=== PATIENT | male | born 1960 | race Caucasian/White ===

== ENCOUNTER 2016-12-10 10:20 | Observation (INO) | payer BC, OTHER ==
[~2016-12-10] VITALS: Ht 165.1 cm; Wt 80.0 kg
[~2016-12-10 10:20] MED LIST: OSEL75 PO
[2016-12-10 10:28] VITALS: BP 161/74; PULSE 92; RESP 36; TEMP 97; O2SAT 100
[2016-12-10] MEDS ORDERED: DULA0.5I SQ (10:34)
[2016-12-10] MEDS ORDERED: METO100T PO (10:34)
[2016-12-10] MEDS ORDERED: PRAV10TA PO (10:34)
[2016-12-10] MEDS ORDERED: LISI10TA3 PO (10:34)
[2016-12-10 10:42] VITALS: RESP 18; O2SAT 100
[2016-12-10 10:43] VITALS: BP 161/74; PULSE 77; RESP 26; O2SAT 100
[2016-12-10] MEDS ORDERED: ONDANSETRON HCL 4 MG/2 ML VIAL IVP ONE (10:45)
[2016-12-10] MEDS ORDERED: SODIUM CHLORIDE 0.9% FLUSH 5 ML FLUSH IVF PRN (10:45)
[2016-12-10] MEDS ORDERED: LORazepam 2 MG/ML VIAL IV ONE (10:45)
[2016-12-10] MEDS ORDERED: SODIUM CHLOR 0.9% 1000 ML INJ 1,000 ML IV ONE ×2 (10:45→12:30)
--- NOTE | 2016-12-10 10:58 | RADRPT ---
EXAM DATE/TIME: 12/10/2016 10:51 [facility] COMPARISON: CHEST PA & LAT, September 25, 2014, 19:13. INDICATIONS : Shortness of breath, cough, and chest pain. MEDICAL HISTORY : None. SURGICAL HISTORY : None. ENCOUNTER: Initial ACUITY: 3 days PAIN SCORE: 3/10 LOCATION: Bilateral chest FINDINGS: A single view of the chest demonstrates the lungs to be symmetrically aerated without evidence of mas s, infiltrate or effusion. The cardiomediastinal contours are unremarkable. Osseous structures are intact. CONCLUSION: No acute disease. No significant change has occurred. Cedric Vann MD on December 10, 2016 at 10:56 Board Certified Radiologist. This report was verified electronically.
[2016-12-10 11:00] LABS: AUTOMATED NEUTROPHIL # 2.2 TH/MM3 (1.8-7.7); BASOPHIL % 0.4 % (0.0-2.0); EOSINOPHIL % 0.5 % (0.0-4.0); HEMATOCRIT 48.1 % (39.0-51.0); HEMO FLAGS DIFF FINAL; LYMPH % 51.8 % (9.0-44.0); LYMPHOCYTE # 2.9 TH/MM3 (1.0-4.8); MONO % 8.7 % (0.0-8.0); NEUT % 38.6 % (16.0-70.0); PLATELET COUNT 156 TH/MM3 (150-450); RED BLOOD COUNT 5.59 MIL/MM3 (4.50-5.90); RED CELL DISTRIBUTION WIDTH 13.2 % (11.6-17.2); WHITE BLOOD COUNT 5.6 TH/MM3 (4.0-11.0)
[2016-12-10 11:07] LABS: APTT (PATIENT) 22.6 SEC (24.3-30.1); PROTHROMBIN TIME - PATIENT 10.8 SEC (9.8-11.6)
[2016-12-10 11:13] LABS: ALT (GPT) 159 U/L (12-78); ANION GAP 14 MEQ/L (5-15); AST (GOT) 50 U/L (15-37); BICARBONATE 22.7 MEQ/L (21.0-32.0); BLOOD UREA NITROGEN 24 MG/DL (7-18); CHLORIDE 105 MEQ/L (98-107); GLOMERULAR FILTRATION RATE 60 ML/MIN (>89); POTASSIUM 3.4 MEQ/L (3.5-5.1); SODIUM (NA) 142 MEQ/L (136-145)
[2016-12-10 11:16] LABS: ALKALINE PHOSPHATASE 65 U/L (45-117); TOTAL BILIRUBIN ADULT 1.9 MG/DL (0.2-1.0)
--- NOTE | 2016-12-10 11:33 | PD ---
HPI Chief Complaint: GI Complaint Time Seen by Provider: 10:38 Travel History International Travel<30 days: No Contact w/Intl Traveler<30days: No Traveled to known affect area: No History of Present Illness HPI 56-year-old male presents emergency department for evaluation of just not feeling well. Patient apparently went to bed last night was feeling fine. This morning he was feeling somewhat nauseous he went to work and had to lay down on the ground because he had some intermittent abdominal cramping as well. He did have chocolate milk and chocolate donut today was unable tolerate that and threw up. Throughout the emergency department he is quite anxious and has thrown up twice since being him into the emergency department. States this is never happened to him before, denies any abdominal surgeries. He does have a history of diabetes, hypercholesterolemia. He denies any chest pain shortness of breath diarrhea constipation sick contacts extremity pain rash headache. PFSH Past Medical History Cancer: Yes (SKIN) High Cholesterol: Yes Diabetes: Yes Patient Takes Glucophage: No Hypertension: Yes Past Surgical History Tonsillectomy: Yes Other Surgery: Yes (SKIN CA REMOVAL) Social History Alcohol Use: No Tobacco Use: No Substance Use: No Allergies-Medications (Allergen,Severity, Reaction): Coded Allergies: No Known Allergies (Unverified , 09/25/14) Reported Meds & Prescriptions Reported Meds & Active Scripts Active Reported Pravastatin 10 Mg Tab Unknown Dose PO DAILY Lisinopril 10 Mg Tab 10 Mg PO DAILY Metoprolol Tartrate 100 Mg Tab 100 Mg PO BID Trulicity Inj (Dulaglutide Inj) 1.5 Mg/0.5 Ml Pen 1.5 Mg SQ Q7D Review of Systems Except as stated in HPI: all other systems reviewed are Neg Physical Exam Narrative GENERAL: Well-developed, appears quite uncomfortable. Nontoxic appearance. SKIN: Warm and dry. HEAD: Atraumatic. Normocephalic. EYES: Pupils equal and round. No scleral icterus. No injection or drainage. ENT: No nasal bleeding or discharge. Mucous membranes pink and moist. NECK: Trachea midline. No JVD. CARDIOVASCULAR: Regular rate and rhythm. No murmur appreciated. RESPIRATORY: No accessory muscle use. Clear to auscultation. Breath sounds equal bilaterally. GASTROINTESTINAL: Abdomen soft, non-tender, nondistended. Hepatic and splenic margins not palpable. No rebound no percussive tenderness. Abdomen is actually fairly benign. MUSCULOSKELETAL: No obvious deformities. No clubbing. No cyanosis. No edema. NEUROLOGICAL: Awake and alert. No obvious cranial nerve deficits. Motor grossly within normal limits. Normal speech. PSYCHIATRIC: Appropriate mood and affect; insight and judgment normal. Data Data Last Documented VS Vital Signs Date Time Temp Pulse Resp B/P Pulse Ox O2 Delivery O2 Flow Rate FiO2 12/10/16 10:43 77 26 161/74 100 Room Air 12/10/16 10:28 97.0 Orders Complete Blood Count With Diff (12/10/16 10:39) Comprehensive Metabolic Panel (12/10/16 10:39) Lipase (12/10/16 10:39) Lactic Acid (12/10/16 10:39) Prothrombin Time / Inr (Pt) (12/10/16 10:39) Act Partial Throm Time (Ptt) (12/10/16 10:39) Urinalysis - C+S If Indicated (12/10/16 10:39) Ct Abd/Pel W Iv Contrast(Rout) (12/10/16 10:39) Iv Access Insert/Monitor (12/10/16 10:39) Ecg Monitoring (12/10/16 10:39) Oximetry (12/10/16 10:39) Ondansetron Inj (Zofran Inj) (12/10/16 10:45) Sodium Chloride 0.9% Flush (Ns Flush) (12/10/16 10:45) Electrocardiogram (12/10/16 10:39) Chest, Single Ap (12/10/16 10:39) Lorazepam Inj (Ativan Inj) (12/10/16 10:45) Sodium Chlor 0.9% 1000 Ml Inj (Ns 1000 M (12/10/16 10:45) Iohexol 350 Inj (Omnipaque 350 Inj) (12/10/16 12:02) Sodium Chlor 0.9% 1000 Ml Inj (Ns 1000 M (12/10/16 12:30) Lactic Acid (12/10/16 13:00) Admit Order (Ed Use Only) (12/10/16 ) Labs Laboratory Tests Test 12/10/16 12/10/16 12/10/16 10:51 11:44 13:06 White Blood Count 5.6 TH/MM3 Red Blood Count 5.59 MIL/MM3 Hemoglobin 16.8 GM/DL Hematocrit 48.1 % Mean Corpuscular Volume 86.0 FL Mean Corpuscular Hemoglobin 30.0 PG Mean Corpuscular Hemoglobin 35.0 % Concent Red Cell Distribution Width 13.2 % Platelet Count 156 TH/MM3 Mean Platelet Volume 9.6 FL Neutrophils (%) (Auto) 38.6 % Lymphocytes (%) (Auto) 51.8 % Monocytes (%) (Auto) 8.7 % Eosinophils (%) (Auto) 0.5 % Basophils (%) (Auto) 0.4 % Neutrophils # (Auto) 2.2 TH/MM3 Lymphocytes # (Auto) 2.9 TH/MM3 Monocytes # (Auto) 0.5 TH/MM3 Eosinophils # (Auto) 0.0 TH/MM3 Basophils # (Auto) 0.0 TH/MM3 CBC Comment DIFF FINAL Differential Comment Prothrombin Time 10.8 SEC Prothromb Time International 1.0 RATIO Ratio Activated Partial 22.6 SEC Thromboplast Time Sodium Level 142 MEQ/L Potassium Level 3.4 MEQ/L Chloride Level 105 MEQ/L Carbon Dioxide Level 22.7 MEQ/L Anion Gap 14 MEQ/L Blood Urea Nitrogen 24 MG/DL Creatinine 1.24 MG/DL Estimat Glomerular Filtration 60 ML/MIN Rate Random Glucose 192 MG/DL Lactic Acid Level 4.0 mmol/L 1.0 mmol/L Calcium Level 9.2 MG/DL Total Bilirubin 1.9 MG/DL Aspartate Amino Transf 50 U/L (AST/SGOT) Alanine Aminotransferase 159 U/L (ALT/SGPT) Alkaline Phosphatase 65 U/L Total Protein 7.5 GM/DL Albumin 3.9 GM/DL Lipase 462 U/L Urine Color YELLOW Urine Turbidity CLEAR Urine pH 7.5 Urine Specific [place] 1.012 Urine Protein TRACE mg/dL Urine Glucose (UA) 150 mg/dL Urine Ketones NEG mg/dL Urine Occult Blood NEG Urine Nitrite NEG Urine Bilirubin NEG Urine Urobilinogen LESS THAN 2.0 MG/DL Urine Leukocyte Esterase NEG Urine RBC LESS THAN 1 /hpf Urine WBC 1 /hpf Urine Mucus FEW /lpf Microscopic Urinalysis Comment CULT NOT INDICATED MDM Medical Decision Making Medical Screen Exam Complete: Yes Emergency Medical Condition: Yes Differential Diagnosis [place] otitis, colitis, cholecystitis, gastritis, gastroenteritis, appendicitis. Narrative Course Patient roomed emergency department, appears fairly anxious. Was given a small dose of Ativan as well as normal saline bolus. Labs did show an elevation of lactic acid 2 for which resolved after 2 L normal saline, lipase minimally elevated as well. He is beginning to feel better. A CAT scan was pursued as his first onset of pancreatitis for him and shows Last 24 hours Impressions Chest X-Ray 12/10/16 1039 Signed Impressions: Service Date/Time: Saturday, December 10, 2016 10:51 - CONCLUSION: No acute disease. No significant change has occurred. Cedric Vann MD Abdomen/Pelvis CT 12/10/16 1039 Signed Impressions: Service Date/Time: Saturday, December 10, 2016 11:47 - CONCLUSION: 1. Tiny 3 mm nonobstructing stone lower pole right kidney. 2. Benign left renal cyst. 3. Otherwise, unremarkable exam. Cedric Vann MD Patient was discussed for observation status with the hospitalist who is agreeable. Diagnosis Primary Impression: Lactic acidemia Additional Impression: Pancreatitis Qualified Code: K85.90 - Acute pancreatitis, unspecified complication status, unspecified pancreatitis type Admitting Information Admitting Physician Requests: Observation Condition: Stable Jonah Sutton MD Dec 10, 2016 11:33
[2016-12-10] MEDS ORDERED: IOHEXOL 350 MG/ML 10 ML VIAL (for RAD DIAG) IV ONE (12:02)
[2016-12-10 12:03] LABS: BLOOD, URINE NEG (NEG); COMMENT (UR) CULT NOT INDICATED; CULTURE IF INDICATED CULT NOT INDICATED; GLUCOSE,URINE 150 mg/dL (NEG); KETONE, URINE NEG (NEG); MUCUS URINE FEW /lpf (OCC); NITRITE,URINE NEG (NEG); PH, URINE 7.5 (5.0-8.5); URINE COLOR YELLOW (YELLW/STRAW)
--- NOTE | 2016-12-10 12:13 | RADRPT ---
EXAM DATE/TIME: 12/10/2016 11:47 [facility] COMPARISON: No previous studies available for comparison. INDICATIONS : Abdomen pain. IV CONTRAST: 80 cc Omnipaque 350 (iohexol) IV ORAL CONTRAST: No oral contrast ingested. RADIATION DOSE: 9.96 CTDIvol (mGy) MEDICAL HISTORY : None SURGICAL HISTORY : None. ENCOUNTER: Initial ACUITY: 1 day PAIN SCALE: 5/10 LOCATION: Bilateral abdomen. TECHNIQUE: Volumetric scanning of the abdomen and pelvis was performed. Using automated exposure control and ad justment of the mA and/or kV according to patient size, radiation dose was kept as low as reasonably achievable to obtain optimal diagnostic quality images. FINDINGS: LOWER LUNGS: The visualized lower lungs are clear. LIVER: Homogeneous density without lesion. There is no dilation of the biliary tree. No calcified gallston es. SPLEEN: Normal size without lesion. PANCREAS: Within normal limits. KIDNEYS: Normal in size and shape. There is no mass or hydronephrosis. There is a tiny 3 mm stone lower pole right kidney not causing obstruction. There is a 3 cm left renal cyst. ADRENAL GLANDS: Within normal limits. VASCULAR: There is no aortic aneurysm. BOWEL/MESENTERY: The stomach, small bowel, and colon demonstrate no acute abnormality. There is no free intraperitone al air or fluid. The appendix is unremarkable. There is stool in the colon. No inflammatory changes. ABDOMINAL WALL: Within normal limits. RETROPERITONEUM: There is no lymphadenopathy. BLADDER: No wall thickening or mass. REPRODUCTIVE: Within normal limits. INGUINAL: There is no lymphadenopathy or hernia. MUSCULOSKELETAL: Within normal limits for patient age. CONCLUSION: 1. Tiny 3 mm nonobstructing stone lower pole right kidney. 2. Benign left renal cyst. 3. Otherwise, unremarkable exam. Cedric Vann MD on December 10, 2016 at 12:09 Board Certified Radiologist. This report was verified electronically.
[2016-12-10 15:17] VITALS: BP 165/88; PULSE 86; RESP 18; O2SAT 98
[2016-12-10] MEDS ORDERED: DEXTROSE 50% IN WATER 50 ML VIAL(D50) IV PUSH PRN (15:45)
[2016-12-10] MEDS ORDERED: SODIUM CHLORIDE 0.9% FLUSH 5 ML FLUSH FLUSH PRN (15:45)
[2016-12-10] MEDS ORDERED: ONDANSETRON HCL 4 MG/2 ML VIAL IVP PRN (15:45)
[2016-12-10] MEDS ORDERED: NALOXONE HCL 0.4 MG/ML AMP IV PRN (15:45)
[2016-12-10] MEDS ORDERED: ACETAMINOPHEN 325 MG TAB PO PRN (15:45)
[2016-12-10] MEDS ORDERED: POTASSIUM CHLOR 20 MEQ PREMIX 100 ML IV ONE (15:45)
[2016-12-10] MEDS ORDERED: GLUCAGON 1 MG/ML VIAL OTHER PRN (15:45)
[2016-12-10] MEDS: INSULIN ASPART SUPPLEMENTAL SCALE SQ SCH ×2 (16:00→21:00)
[2016-12-10] MEDS: SODIUM CHLOR 0.9% 1000 ML INJ 1,000 ML IV SCH (16:13)
--- NOTE | 2016-12-10 16:29 | HHI.HP ---
HPI Service [facility] Primary Care Physician Isaura Salvador Admission Diagnosis Pancreatitis, Lactic Acidemia. Diagnoses: Chief Complaint: Nausea vomiting, weakness (Raphael Ellisonalbino GALVAN) Travel History International Travel<30 Days: No Contact w/Intl Traveler <30 Da: No Traveled to Known Affected Are: No (Raphael Ellisonalbino GALVAN) History of Present Illness This is a 56-year-old male with significant past medical history of type 2 diabetes, hypertension hyperlipidemia. Patient indicates he was in his usual state of health, he went to work this morning and felt a little bit weak and shaky when he work up. When he arrived to work he had diffuse abdominal pain across middle abdomen, he developed nausea vomiting. He vomited approximately 2 times, it was brown color as he had eaten chocolate donuts earlier. He felt cold, mildly short of breath, no chest pain. Bowel movements have been regular , no blood in the stool. No hematemesis. States that last week he went to urgent care center and was treated for a viral upper respiratory infection. He has a dry cough but otherwise no sputum, no recent fever or chills. He denies any recent sick contacts, no outside travel. States that his usually in very good health. Patient presented to the emergency room for further evaluation. In the emergency room, laboratory workup was completed, he was noted hypokalemic , potassium 3.4. Lactic acid was 4 and repeat was 1 after fluid resuscitation. AST was 50, AST 159. Lipase was elevated 462. CBC was unremarkable. Urinalysis did not show any infection. Chest x-ray without any significant findings. CT of the abdomen and pelvis showed tiny 3 mm nonobstructive stone to the lower pole right kidney, benign left renal cyst but otherwise it was a benign exam. Last Impressions Chest X-Ray 12/10/16 1039 Signed Impressions: Service Date/Time: Saturday, December 10, 2016 10:51 - CONCLUSION: No acute disease. No significant change has occurred. Cedric Vann MD Abdomen/Pelvis CT 12/10/16 1039 Signed Impressions: Service Date/Time: Saturday, December 10, 2016 11:47 - CONCLUSION: 1. Tiny 3 mm nonobstructing stone lower pole right kidney. 2. Benign left renal cyst. 3. Otherwise, unremarkable exam. Cedric Vann MD Patient was given antiemetics, IV fluids. States he is feeling slightly improved. Patient is admitted for further evaluation and treatment (Nunu Ellison) Review of Systems Constitutional: COMPLAINS OF: Chills, DENIES: Diaphoretic episodes, Fatigue, Fever, Weight gain, Weight loss, Dizziness, Change in appetite, Night Sweats Endocrine: DENIES: Heat/cold intolerance, Polydipsia, Polyuria, Polyphagia Eyes: DENIES: Blurred vision, Diplopia, Eye inflammation, Eye pain, Vision loss , Photosensitivity, Double Vision Ears, nose, mouth, throat: DENIES: Tinnitus, Hearing loss, Vertigo, Nasal discharge, Oral lesions, Throat pain, Hoarseness, Ear Pain, Running Nose, Epistaxis, Sinus Pain, Toothache, Odynophagia Respiratory: DENIES: Apneas, Cough, Snoring, Wheezing, Hemoptysis, Sputum production, Shortness of breath Cardiovascular: DENIES: Chest pain, Palpitations, Syncope, Dyspnea on Exertion , PND, Lower Extremity Edema, Orthopnea, Claudication Gastrointestinal: COMPLAINS OF: Abdominal pain, Nausea, Vomiting, DENIES: Black stools, Bloody stools, Constipation, Diarrhea, Difficulty Swallowing, Anorexia Genitourinary: DENIES: Sexual dysfunction, Urinary frequency, Urinary incontinence, Urgency, Hematuria, Dysuria, Nocturia, Penile Discharge, Testicular Pain, Testicular Swelling Musculoskeletal: DENIES: Joint pain, Muscle aches, Stiffness, Joint Swelling, Back pain, Neck pain Integumentary: DENIES: Abnormal pigmentation, Nail changes, Pruritus, Rash Hematologic/lymphatic: DENIES: Bruising, Lymphadenopathy Immunologic/allergic: DENIES: Eczema, Urticaria Neurologic: DENIES: Abnormal gait, Headache, Localized weakness, Paresthesias, Seizures, Speech Problems, Tremor, Poor Balance Psychiatric: DENIES: Anxiety, Confusion, Mood changes, Depression, Hallucinations, Agitation, Suicidal Ideation, Homicidal Ideation, Delusions ( Nunu Ellison) Past Family Social History Past Medical History Hypertension Hyperlipidemia Diabetes Arthritis Skin cancer Past Surgical History Tonsillectomy skin cancer removal Reported Medications Reported Meds & Active Scripts Active Reported Pravastatin 10 Mg Tab Unknown Dose PO DAILY Lisinopril 10 Mg Tab 10 Mg PO DAILY Metoprolol Tartrate 100 Mg Tab 100 Mg PO BID Trulicity Inj (Dulaglutide Inj) 1.5 Mg/0.5 Ml Pen 1.5 Mg SQ Q7D (Nunu Ellison) Allergies: Coded Allergies: No Known Allergies (Unverified , 09/25/14) Active Ordered Medications Inpatient Medications Acetaminophen (Tylenol) 650 mg Q4H PRN PO TEMP > 100.4; Start 12/10/16 at 15:45 Dextrose (D50w (Vial) Inj) 25 ml UNSCH PRN IV PUSH HYPOGLYCEMIA-SEE COMMENTS; Start 12/10/16 at 15:45 Enoxaparin Sodium (Lovenox Inj) 40 mg Q24H SQ ; Start 12/10/16 at 17:00 Glucagon (Glucagon Inj) 1 mg UNSCH PRN OTHER HYPOGLYCEMIA-SEE COMMENTS; Start 12/10/16 at 15:45 Insulin Aspart (NovoLOG SUPPLEMENTAL SCALE) 1 ACHS SLIDING SCALE SQ ; Start at 16:00 IV Flush (NS Flush) 2 ml BID FLUSH ; Start 12/10/16 at 21:00 Lorazepam 0.5 mg 0.5 mg ONCE ONCE IV Last administered on 12/10/16t 10:46; Start 12/10/16 at 10:45; Stop 12/10/16 at 10:50; Status DC Naloxone HCl 0.4 mg 0.4 mg UNSCH PRN IV SEE LABEL COMMENTS; Start 12/10/16 at 15:45 Ondansetron HCl (Zofran Inj) 4 mg Q6H PRN IVP NAUSEA OR VOMITING; Start at 15:45 Potassium Chloride (KCl 20 Meq Premix Inj) 100 ml @ 50 mls/hr BOLUS ONCE IV ; Start 12/10/16 at 15:45; Stop 12/10/16 at 17:44 Sodium Chloride (NS 1000 ml Inj) 1,000 ml @ 100 mls/hr Q10H IV ; Start at 15:32 Family History Mother from complications from bone cancer Father from complications of CHF and end-stage renal disease Has a brother who has a history of kidney transplant Social History Patient is , no alcohol, no substance abuse, tobacco abuse. Works at a [employer]. (Nunu Ellison) Physical Exam Vital Signs Vital Signs Date Time Temp Pulse Resp B/P Pulse Ox O2 Delivery O2 Flow Rate FiO2 12/10/16 15:17 86 18 165/88 98 Room Air 12/10/16 10:43 77 26 161/74 100 Room Air 12/10/16 10:42 18 100 Room Air 12/10/16 10:28 97.0 92 36 161/74 100 Physical Exam GENERAL: This is a well-nourished, well-developed patient, in no apparent distress. SKIN: No rashes, ecchymoses or lesions. Cool and dry. HEAD: Atraumatic. Normocephalic. No temporal or scalp tenderness. EYES: Pupils equal round and reactive. Extraocular motions intact. No scleral icterus. No injection or drainage. ENT: Nose without bleeding, purulent drainage or septal hematoma. Throat without erythema, tonsillar hypertrophy or exudate. Uvula midline. Airway patent. NECK: Trachea midline. No JVD or lymphadenopathy. Supple, nontender, no meningeal signs. CARDIOVASCULAR: Regular rate and rhythm without murmurs, gallops, or rubs. RESPIRATORY: Clear to auscultation. Breath sounds equal bilaterally. No wheezes , rales, or rhonchi. GASTROINTESTINAL: Abdomen soft, mild tenderness on palpation, nondistended. No hepato-splenomegaly, or palpable masses. No guarding. MUSCULOSKELETAL: Extremities without clubbing, cyanosis, or edema. No joint tenderness, effusion, or edema noted. No calf tenderness. Negative Homans sign bilaterally. NEUROLOGICAL: Awake and alert. Cranial nerves II through XII intact. Motor and sensory grossly within normal limits. Five out of 5 muscle strength in all muscle groups. Normal speech. Laboratory Laboratory Tests Test 12/10/16 12/10/16 12/10/16 10:51 11:44 13:06 White Blood Count 5.6 Red Blood Count 5.59 Hemoglobin 16.8 Hematocrit 48.1 Mean Corpuscular Volume 86.0 Mean Corpuscular Hemoglobin 30.0 Mean Corpuscular Hemoglobin 35.0 Concent Red Cell Distribution Width 13.2 Platelet Count 156 Mean Platelet Volume 9.6 Neutrophils (%) (Auto) 38.6 Lymphocytes (%) (Auto) 51.8 Monocytes (%) (Auto) 8.7 Eosinophils (%) (Auto) 0.5 Basophils (%) (Auto) 0.4 Neutrophils # (Auto) 2.2 Lymphocytes # (Auto) 2.9 Monocytes # (Auto) 0.5 Eosinophils # (Auto) 0.0 Basophils # (Auto) 0.0 CBC Comment DIFF FINAL Differential Comment Prothrombin Time 10.8 Prothromb Time International 1.0 Ratio Activated Partial 22.6 Thromboplast Time Sodium Level 142 Potassium Level 3.4 Chloride Level 105 Carbon Dioxide Level 22.7 Anion Gap 14 Blood Urea Nitrogen 24 Creatinine 1.24 Estimat Glomerular Filtration 60 Rate Random Glucose 192 Lactic Acid Level 4.0 1.0 Calcium Level 9.2 Total Bilirubin 1.9 Aspartate Amino Transf 50 (AST/SGOT) Alanine Aminotransferase 159 (ALT/SGPT) Alkaline Phosphatase 65 Total Protein 7.5 Albumin 3.9 Lipase 462 Urine Color YELLOW Urine Turbidity CLEAR Urine pH 7.5 Urine Specific [place] 1.012 Urine Protein TRACE Urine Glucose (UA) 150 Urine Ketones NEG Urine Occult Blood NEG Urine Nitrite NEG Urine Bilirubin NEG Urine Urobilinogen LESS THAN 2.0 Urine Leukocyte Esterase NEG Urine RBC LESS THAN 1 Urine WBC 1 Urine Mucus FEW Microscopic Urinalysis Comment CULT NOT INDICATED (Nuun Ellison) Result Diagram: 12/10/16 1051 12/10/16 1051 Imaging Last Impressions Chest X-Ray 12/10/16 1039 Signed Impressions: Service Date/Time: Saturday, December 10, 2016 10:51 - CONCLUSION: No acute disease. No significant change has occurred. Cedric Vann MD Abdomen/Pelvis CT 12/10/16 1039 Signed Impressions: Service Date/Time: Saturday, December 10, 2016 11:47 - CONCLUSION: 1. Tiny 3 mm nonobstructing stone lower pole right kidney. 2. Benign left renal cyst. 3. Otherwise, unremarkable exam. Cedric Vann MD (Nunu Ellison) Assessment and Plan Problem List: (1) Nausea & vomiting (2) Elevated lipase (3) Lactic acid acidosis (4) Gastroenteritis (5) Hypokalemia (6) Diabetes 1.5, managed as type 2 (7) Elevated liver enzymes Assessment and Plan Admit to Dr. Guadalupe 56-year-old male presented to the emergency room with complaint of diffuse abdominal cramping, nausea vomiting. Found with lactic acidosis, hypokalemia. Admitted for possible viral gastroenteritis, recent upper respiratory infection. Also noted with elevated lipase, possibly secondary to nausea, doubtful it's pancreatitis -Continue with IV fluids, normal saline at 100 Continue with antiemetics when necessary -Clear liquid diet for now Replace electrolytes -Repeat lipase in the morning Repeat BMP in the morning C/O SOB and nausea -check trop x 1 and 12 lead EKG Type 2 diabetes, blood glucose elevated Accu-Cheks before meals and at bedtime with insulin therapy -counselled about diet Elevated liver enzymes, etiology unclear Hold statins Repeat LFTs in the morning Hypertension Continue home medications Home medications reviewed, initiated as indicated Protonix for GI prophylaxis Lovenox for DVT prophylaxis Plan of care has been discussed with the patient and his , the questions have been answered detail. Plan of care discussed with attending and registered nurse. Further management of the patient will be dependent on the hospital course This patient was seen by myself and Dr. Guadalupe, this H&P is written on his behalf (Nunu Ellison) Assessment and Plan ptis seen & Examined d/w PT & his d/w Nunu agree w above will f/u (Angelita Guadalupe MD) Problem Qualifiers (1) Nausea & vomiting: Qualified Code: R11.2 - Nausea and vomiting, intractability of vomiting not specified, unspecified vomiting type Nunu Ellison Dec 10, 2016 16:29 Angelita Guadalupe MD Dec 10, 2016 18:05
[2016-12-10 16:31] VITALS: BP 174/93; PULSE 79; RESP 18; O2SAT 99
[2016-12-10] MEDS ORDERED: ENOXAPARIN SODIUM 40 MG/0.4 ML SYRINGE SQ SCH (17:00)
[2016-12-10 20:28] VITALS: BP 162/83; PULSE 79; RESP 18; TEMP 98.3; O2SAT 96
[2016-12-10] MEDS: SODIUM CHLORIDE 0.9% FLUSH 5 ML FLUSH FLUSH SCH (21:00)
[2016-12-10] MEDS: METOPROLOL TARTRATE 100 MG TAB PO SCH (21:37)
[2016-12-11 00:26] VITALS: BP 158/90; PULSE 83; TEMP 98.5; O2SAT 95
[2016-12-11] MEDS: SODIUM CHLOR 0.9% 1000 ML INJ 1,000 ML IV SCH ×3 (01:32→13:26)
[2016-12-11 04:42] VITALS: BP 169/84; PULSE 84; RESP 18; TEMP 98.4; O2SAT 94
[2016-12-11 05:35] LABS: BASOPHIL % 0.3 % (0.0-2.0); HEMATOCRIT 43.1 % (39.0-51.0); HEMO FLAGS DIFF FINAL; LYMPH % 46.7 % (9.0-44.0); LYMPHOCYTE # 2.1 TH/MM3 (1.0-4.8); MEAN CELL VOLUME 87.3 FL (80.0-100.0); MEAN CORPUSCULAR HEMOGLOBIN 29.9 PG (27.0-34.0); MEAN CORPUSCULAR HGB CONC 34.2 % (32.0-36.0); MONO % 7.5 % (0.0-8.0); NEUT % 44.5 % (16.0-70.0); PLATELET COUNT 106 TH/MM3 (150-450); RED BLOOD COUNT 4.93 MIL/MM3 (4.50-5.90); RED CELL DISTRIBUTION WIDTH 13.4 % (11.6-17.2); WHITE BLOOD COUNT 4.4 TH/MM3 (4.0-11.0)
[2016-12-11 06:19] LABS: POTASSIUM 3.9 MEQ/L (3.5-5.1)
[2016-12-11 06:22] LABS: INDIRECT BILIRUBIN 1.5 MG/DL (0.0-0.8); TOTAL BILIRUBIN ADULT 1.7 MG/DL (0.2-1.0)
[2016-12-11] MEDS: INSULIN ASPART SUPPLEMENTAL SCALE SQ SCH ×2 (07:00→13:26)
--- NOTE | 2016-12-11 07:53 | HHI.DCPOC ---
Discharge Care Plan Diagnosis: (1) Hypokalemia (2) Gastroenteritis (3) Lactic acid acidosis (4) Nausea & vomiting (5) Elevated liver enzymes (6) Diabetes 1.5, managed as type 2 (7) Elevated lipase Your Health Problems Are: Appetite Changes Goals to Promote Your Health * To prevent worsening of your condition and complications * To maintain your health at the optimal level Directions to Meet Your Goals Take your medications as prescribed Follow your dietary instruction Follow activity as directed Keep your appointments as scheduled Take your immunizations and boosters as scheduled If your symptoms worsen call your PCP, if no PCP go to Urgent Care Center or Emergency Room Smoking is Dangerous to Your Health. Avoid second hand smoke Call the 24-hour hour crisis hotline for domestic abuse at Nunu Ellison Dec 11, 2016 07:53
--- NOTE | 2016-12-11 07:54 | HHI.PR ---
Subjective Subjective Remarks no n/v no diarrhea no abd. pain afebrile no cp no sob tolerating clear diet okay Review of Systems Constitutional Constitutional Remarks 12 point ROS completed, negative except as noted above Vitals/Results Vital Signs Vital Signs Date Time Temp Pulse Resp B/P Pulse Ox O2 Delivery O2 Flow Rate FiO2 12/11/16 04:42 98.4 84 18 169/84 94 12/11/16 00:26 98.5 83 158/90 95 12/10/16 20:28 98.3 79 18 162/83 96 12/10/16 16:31 79 18 174/93 99 Nasal Cannula 2 12/10/16 15:17 86 18 165/88 98 Room Air 12/10/16 10:43 77 26 161/74 100 Room Air 12/10/16 10:42 18 100 Room Air 12/10/16 10:28 97.0 92 36 161/74 100 CBC/BMP: 12/11/16 0457 12/11/16 0457 Lab Results Laboratory Tests Test 12/10/16 12/10/16 12/10/16 12/10/16 10:51 11:44 13:06 16:49 White Blood Count 5.6 TH/MM3 Red Blood Count 5.59 MIL/MM3 Hemoglobin 16.8 GM/DL Hematocrit 48.1 % Mean Corpuscular Volume 86.0 FL Mean Corpuscular Hemoglobin 30.0 PG Mean Corpuscular Hemoglobin 35.0 % Concent Red Cell Distribution Width 13.2 % Platelet Count 156 TH/MM3 Mean Platelet Volume 9.6 FL Neutrophils (%) (Auto) 38.6 % Lymphocytes (%) (Auto) 51.8 % Monocytes (%) (Auto) 8.7 % Eosinophils (%) (Auto) 0.5 % Basophils (%) (Auto) 0.4 % Neutrophils # (Auto) 2.2 TH/MM3 Lymphocytes # (Auto) 2.9 TH/MM3 Monocytes # (Auto) 0.5 TH/MM3 Eosinophils # (Auto) 0.0 TH/MM3 Basophils # (Auto) 0.0 TH/MM3 CBC Comment DIFF FINAL Differential Comment Prothrombin Time 10.8 SEC Prothromb Time International 1.0 RATIO Ratio Activated Partial 22.6 SEC Thromboplast Time Sodium Level 142 MEQ/L Potassium Level 3.4 MEQ/L Chloride Level 105 MEQ/L Carbon Dioxide Level 22.7 MEQ/L Anion Gap 14 MEQ/L Blood Urea Nitrogen 24 MG/DL Creatinine 1.24 MG/DL Estimat Glomerular Filtration 60 ML/MIN Rate Random Glucose 192 MG/DL Lactic Acid Level 4.0 mmol/L 1.0 mmol/L Calcium Level 9.2 MG/DL Total Bilirubin 1.9 MG/DL Aspartate Amino Transf 50 U/L (AST/SGOT) Alanine Aminotransferase 159 U/L (ALT/SGPT) Alkaline Phosphatase 65 U/L Total Protein 7.5 GM/DL Albumin 3.9 GM/DL Lipase 462 U/L Urine Color YELLOW Urine Turbidity CLEAR Urine pH 7.5 Urine Specific [place] 1.012 Urine Protein TRACE mg/dL Urine Glucose (UA) 150 mg/dL Urine Ketones NEG mg/dL Urine Occult Blood NEG Urine Nitrite NEG Urine Bilirubin NEG Urine Urobilinogen LESS THAN 2.0 MG/DL Urine Leukocyte Esterase NEG Urine RBC LESS THAN 1 /hpf Urine WBC 1 /hpf Urine Mucus FEW /lpf Microscopic Urinalysis Comment CULT NOT INDICATED Troponin I 0.03 NG/ML Test 12/11/16 04:57 White Blood Count 4.4 TH/MM3 Red Blood Count 4.93 MIL/MM3 Hemoglobin 14.7 GM/DL Hematocrit 43.1 % Mean Corpuscular Volume 87.3 FL Mean Corpuscular Hemoglobin 29.9 PG Mean Corpuscular Hemoglobin 34.2 % Concent Red Cell Distribution Width 13.4 % Platelet Count 106 TH/MM3 Mean Platelet Volume 9.3 FL Neutrophils (%) (Auto) 44.5 % Lymphocytes (%) (Auto) 46.7 % Monocytes (%) (Auto) 7.5 % Eosinophils (%) (Auto) 1.0 % Basophils (%) (Auto) 0.3 % Neutrophils # (Auto) 2.0 TH/MM3 Lymphocytes # (Auto) 2.1 TH/MM3 Monocytes # (Auto) 0.3 TH/MM3 Eosinophils # (Auto) 0.0 TH/MM3 Basophils # (Auto) 0.0 TH/MM3 CBC Comment DIFF FINAL Differential Comment Sodium Level 144 MEQ/L Potassium Level 3.9 MEQ/L Chloride Level 107 MEQ/L Carbon Dioxide Level 29.0 MEQ/L Anion Gap 8 MEQ/L Blood Urea Nitrogen 10 MG/DL Creatinine 0.81 MG/DL Estimat Glomerular Filtration 99 ML/MIN Rate Random Glucose 106 MG/DL Calcium Level 8.1 MG/DL Total Bilirubin 1.7 MG/DL Direct Bilirubin 0.2 MG/DL Indirect Bilirubin 1.5 MG/DL Aspartate Amino Transf 28 U/L (AST/SGOT) Alanine Aminotransferase 103 U/L (ALT/SGPT) Alkaline Phosphatase 53 U/L Total Protein 6.1 GM/DL Albumin 3.0 GM/DL Lipase 262 U/L Physical Exam General General Appearance: Well Developed, Well Nourished, No Acute Distress, Comfortable Eyes Eye Exam: Pupils Equal, Pupils Reactive Ears & Nose Ears & Nose Exam: Nasal Mucosa [place] Throat Throat Exam: Oral Mucosa [place] & Moist Neck Neck Exam: Neck Supple, Trachea Midline Pulmonary Resp Exam: Clear Bilaterally, No Distress Cardiology CV Exam: Normal Sinus Rhythm, Good Perfusion Gastrointestinal/Abdomen GI Exam: Soft, Non-Tender, Bowel Sounds Present, Non-Distended Musculoskeletal MS Exam: Joints Intact Integumentary Skin Exam: Warm, Dry Extremeties Extremities Exam: No Edema, Pedal Pulses Palpable Neurologic Neuro Exam: Alert, Awake, Oriented, Speech Clear, Moving All Extremities, No Focal Deficits Psychiatric Psych Exam: Appropriate Responses VTE Prophylaxis VTE Prophylaxis Device: SCDs VTE Prophylaxis Meds: Lovenox Assessment/Plan Problem List: (1) Hypokalemia (2) Gastroenteritis (3) Lactic acid acidosis (4) Nausea & vomiting (5) Elevated liver enzymes (6) Diabetes 1.5, managed as type 2 (7) Elevated lipase (8) Thrombocytopenia Assessment/Plan 56-year-old male presented to the emergency room with complaint of diffuse abdominal cramping, nausea vomiting. Found with lactic acidosis, hypokalemia. Admitted for possible viral gastroenteritis, recent upper respiratory infection. Also noted with elevated lipase, possibly secondary to nausea, doubtful it's pancreatitis. Lipase back to normal, feels better. Tolerating diet well -Continue with IV fluids, normal saline at 100 Continue with antiemetics when necessary Replace electrolytes -lipase now normal -adv diet to 1800 ada C/O SOB and nausea-trop and EKG okay -check trop x 1 and 12 lead EKG-reviewed, okay Type 2 diabetes, blood glucose elevated Accu-Cheks before meals and at bedtime with insulin therapy -counselled about diet Elevated liver enzymes, etiology unclear-coming downn Hold statins Thrombocytopenia ? etiology -Repeat CBC next week. Hypertension Continue home medications Protonix for GI prophylaxis Lovenox for DVT prophylaxis Plan to [place] today repeat cbc next week, results to PCP F/U PCP 1 week Diet-diabetic Activity-as tolerated D/W RN D/W Dr. Guadalupe D/W pt This patient was seen by myself and Dr. Guadalupe, this note is written on his behalf Discharge Minutes: 40 Problem Qualifiers (1) Nausea & vomiting: Qualified Code: R11.2 - Nausea and vomiting, intractability of vomiting not specified, unspecified vomiting type Nunu Ellison Dec 11, 2016 07:54
[2016-12-11 08:00] VITALS: BP 160/95; PULSE 84; RESP 18; TEMP 97.8; O2SAT 94
[2016-12-11] MEDS: METOPROLOL TARTRATE 100 MG TAB PO SCH (08:10)
[2016-12-11] MEDS: SODIUM CHLORIDE 0.9% FLUSH 5 ML FLUSH FLUSH SCH (08:10)
--- NOTE | 2016-12-11 08:18 | EKG ---
Date Performed: 12/10/2016 Time Performed: 17:04:44 PTAGE: 56 years EKG: Sinus rhythm NONSPECIFIC T-WAVE ABNORMALITY BORDERLINE ECG NO PREVIOUS TRACING DOCTOR: Jaspal Nieves Interpretating Date/Time 12/11/2016 08:16:39
[2016-12-11] MEDS ORDERED: LISINOPRIL 10 MG TAB PO SCH (09:00)
[2016-12-11 11:39] VITALS: BP 164/83; PULSE 78
--- NOTE | 2016-12-16 17:40 | HHI.DS ---
Discharge Summary Admission Date Dec 10, 2016 at 14:19 Discharge Date: Dec 11, 2016 Admitting Diagnosis Pancreatitis, Lactic Acidemia. (1) Nausea & vomiting Diagnosis: Principal (2) Elevated lipase Diagnosis: Principal (3) Lactic acid acidosis Diagnosis: Principal (4) Gastroenteritis Diagnosis: Principal (5) Hypokalemia Diagnosis: Principal (6) Diabetes 1.5, managed as type 2 Diagnosis: Secondary (7) Elevated liver enzymes Diagnosis: Secondary Brief History This was a 56-year-old male with significant past medical history of type 2 diabetes, hypertension hyperlipidemia. Patient indicated he was in his usual state of health, he went to work this morning and felt a little bit weak and shaky when he work up. When he arrived to work he had diffuse abdominal pain across middle abdomen, he developed nausea vomiting. He vomited approximately 2 times, it was brown color as he had eaten chocolate donuts earlier. He felt cold, mildly short of breath, no chest pain. Bowel movements have been regular , no blood in the stool. No hematemesis. Stated that last week he went to urgent care center and was treated for a viral upper respiratory infection. He had a dry cough but otherwise no sputum, no recent fever or chills. He denied any recent sick contacts, no outside travel. Stated that his usually in very good health. Patient presented to the emergency room for further evaluation. Chest X-Ray 12/10/16 103 Signed Impressions: Service Date/Time: Saturday, December 10, 2016 10:51 - CONCLUSION: No acute disease. No significant change has occurred. Cedric Vann MD Abdomen/Pelvis CT 12/10/16 1039 Signed Impressions: Service Date/Time: Saturday, December 10, 2016 11:47 - CONCLUSION: 1. Tiny 3 mm nonobstructing stone lower pole right kidney. 2. Benign left renal cyst. 3. Otherwise, unremarkable exam. Cedric Vann MD Patient was given antiemetics, IV fluids. States he is feeling slightly improved. Patient is admitted for further evaluation and treatment Imaging Last Impressions Chest X-Ray 12/10/16 1039 Signed Impressions: Service Date/Time: Saturday, December 10, 2016 10:51 - CONCLUSION: No acute disease. No significant change has occurred. Cedric Vann MD Abdomen/Pelvis CT 12/10/16 1039 Signed Impressions: Service Date/Time: Saturday, December 10, 2016 11:47 - CONCLUSION: 1. Tiny 3 mm nonobstructing stone lower pole right kidney. 2. Benign left renal cyst. 3. Otherwise, unremarkable exam. Cedric Vann MD PE at Discharge GENERAL: This was a well-nourished, well-developed patient, in no apparent distress. SKIN: No rashes, ecchymoses or lesions. Cool and dry. HEAD: Atraumatic. Normocephalic. No temporal or scalp tenderness. EYES: Pupils equal round and reactive. Extraocular motions intact. No scleral icterus. No injection or drainage. ENT: Nose without bleeding, purulent drainage or septal hematoma. Throat without erythema, tonsillar hypertrophy or exudate. Uvula midline. Airway patent. NECK: Trachea midline. No JVD or lymphadenopathy. Supple, nontender, no meningeal signs. CARDIOVASCULAR: Regular rate and rhythm without murmurs, gallops, or rubs. RESPIRATORY: Clear to auscultation. Breath sounds equal bilaterally. No wheezes , rales, or rhonchi. GASTROINTESTINAL: Abdomen soft, mild tenderness on palpation, nondistended. No hepato-splenomegaly, or palpable masses. No guarding. MUSCULOSKELETAL: Extremities without clubbing, cyanosis, or edema. No joint tenderness, effusion, or edema noted. No calf tenderness. Negative Homans sign bilaterally. NEUROLOGICAL: Awake and alert. Cranial nerves II through XII intact. Motor and sensory grossly within normal limits. Five out of 5 muscle strength in all muscle groups. Normal speech. Hospital Course In the emergency room, laboratory workup was completed, he was noted hypokalemic, potassium 3.4. Lactic acid was 4 and repeat was 1 after fluid resuscitation. AST was 50, AST 159. Lipase was elevated 462. CBC was unremarkable. Urinalysis did not show any infection. Chest x-ray without any significant findings. CT of the abdomen and pelvis showed tiny 3 mm nonobstructive stone to the lower pole right kidney, benign left renal cyst but otherwise it was a benign exam. After patient was admitted these with the diagnosis used to treat her hospital during her hospital stay and plan of care. (1) Hypokalemia (2) Gastroenteritis (3) Lactic acid acidosis (4) Nausea & vomiting (5) Elevated liver enzymes (6) Diabetes 1.5, managed as type 2 (7) Elevated lipase (8) Thrombocytopenia Assessment/Plan 56-year-old male presented to the emergency room with complaint of diffuse abdominal cramping, nausea vomiting. Found with lactic acidosis, hypokalemia. Admitted for possible viral gastroenteritis, recent upper respiratory infection. Also noted with elevated lipase, possibly secondary to nausea, doubtful it's pancreatitis. Lipase monitored and returning back to normal, feels better. Tolerating diet well -Continue with IV fluids, normal saline at 100, gentle hydration during hospital stay Continue with antiemetics when necessary, when necessary medications Replace electrolytes, when monitoring lab abnormals -lipase now normal -adv diet to 1800 ada, patient gradual tolerating better C/O SOB and nausea-trop and EKG okay -check trop x 1 and 12 lead EKG-reviewed, okay Type 2 diabetes, blood glucose elevated Accu-Cheks before meals and at bedtime with insulin therapy -counselled about diet Elevated liver enzymes, etiology unclear-coming downn Hold statins Thrombocytopenia ? etiology -Repeat CBC next week. Hypertension Continue home medications Protonix for GI prophylaxis Lovenox for DVT prophylaxis After evaluation from MANDY and MD, patient was stabilized to return home. Patient is to repeat cbc next week, and send results to PCP F/U PCP appointment in 1 week Diet-diabetic with monitoring of blood sugars Activity-as tolerated Pt Condition on Discharge: Stable Discharge Disposition: Discharge Home Discharge Instructions DIET: Follow Instructions for: Heart Healthy Diet Fluid Restrictions: none Activities you can perform: Regular-No Restrictions Follow up Referrals: PCP Follow-up New Orders: CBC WITH DIFF - 1 Week Continued Medications: Dulaglutide Inj (Trulicity Inj) 1.5 Mg/0.5 Ml Pen 1.5 MG SQ Q7D Blood Sugar Management #4 Ref 0 PEN Lisinopril (Lisinopril) 10 Mg Tab 10 MG PO DAILY #30 Ref 0 TAB Metoprolol Tartrate (Metoprolol Tartrate) 100 Mg Tab 100 MG PO BID #60 Ref 0 TAB Pravastatin (Pravastatin) 10 Mg Tab Unknown Dose PO DAILY Cholesterol Management #30 Ref 0 TAB Lizzie Bryant Dec 16, 2016 17:40
== END 2016-12-11 14:26 | disposition home or self-care (01) ==
LOC: NEPC 10:20 → NEDA 14:19 → NEPGCP 19:10
PROVIDERS: ADMIT Specialist; ATTEND Specialist
DX: K85.90 Acute pancreatitis without necrosis or infection, unspecified (principal); K52.9 Noninfective gastroenteritis and colitis, unspecified; E87.2 Acidosis; E87.6 Hypokalemia; R74.8 Abnormal levels of other serum enzymes; E11.9 Type 2 diabetes mellitus without complications; D69.6 Thrombocytopenia, unspecified; I10 Essential (primary) hypertension; E78.5 Hyperlipidemia, unspecified; E78.00 Pure hypercholesterolemia, unspecified; N28.1 Cyst of kidney, acquired; Z85.828 Personal history of other malignant neoplasm of skin; Z79.84 Long term (current) use of oral hypoglycemic drugs
CPT/HCPCS: 71010; 74177; 80048; 80053; 80076; 81001; 82948; 83605; 83690; 84484; 85025; 85610; 85730; 93005; 96374; 96375; 96376; 99285; G0378; J1650; J1815; J2060; J2405; J3480; J7030; Q9967